=== PATIENT | female | born 1965 | race Caucasian/White ===

== ENCOUNTER 2016-12-01 17:22 | Emergency (ER) | payer SELFPAY ==
[~2016-12-01] VITALS: Ht 182.9 cm; Wt 65.1 kg
[~2016-12-01 17:22] MED LIST: CELE20TA PO; GLUCTAB PO; METH25IN13 SQ; PRED5TAB PO; SYNT125T PO
[2016-12-01 17:26] VITALS: BP 112/86; PULSE 99; RESP 16; TEMP 98.3; O2SAT 97
[2016-12-01] MEDS ORDERED: SODIUM CHLOR 0.9% 1000 ML INJ 1,000 ML IV SCH (17:43)
[2016-12-01] MEDS ORDERED: HALOPERIDOL LACTATE 5 MG/ML AMP IV PUSH ONE (17:45)
[2016-12-01] MEDS ORDERED: LORazepam 2 MG/ML VIAL IV PUSH ONE (17:45)
[2016-12-01] MEDS ORDERED: PROMETHAZINE INJ 25 MG/ML VIAL IM ONE (17:45)
[2016-12-01] MEDS ORDERED: SODIUM CHLORIDE 0.9% FLUSH 10 ML FLUSH IV FLUSH PRN (17:45)
[2016-12-01] MEDS ORDERED: ROBI0.2I3 PO (17:51)
[2016-12-01] MEDS ORDERED: PRED20 PO (17:51)
[2016-12-01] MEDS ORDERED: ZOLO25TA PO (17:51)
[2016-12-01] MEDS ORDERED: TEMA30CA PO (17:52)
[2016-12-01] MEDS ORDERED: LORA2TAB7 PO (17:52)
[2016-12-01] MEDS ORDERED: METF500T PO (17:52)
[2016-12-01 18:25] LABS: AUTOMATED NEUTROPHIL # 4.4 TH/MM3 (1.8-7.7); BASOPHIL # 0.2 TH/MM3 (0-0.2); EOSINOPHIL # 0.1 TH/MM3 (0-0.4); EOSINOPHIL % 1.8 % (0.0-4.0); HEMATOCRIT 37.1 % (35.0-46.0); HEMO FLAGS DIFF FINAL; LYMPH % 25.2 % (9.0-44.0); LYMPHOCYTE # 1.8 TH/MM3 (1.0-4.8); MEAN CELL VOLUME 81.9 FL (80.0-100.0); MEAN CORPUSCULAR HEMOGLOBIN 27.7 PG (27.0-34.0); MEAN CORPUSCULAR HGB CONC 33.8 % (32.0-36.0); MONO % 8.9 % (0.0-8.0); NEUT % 61.1 % (16.0-70.0); PLATELET COUNT 263 TH/MM3 (150-450); RED BLOOD COUNT 4.53 MIL/MM3 (4.00-5.30); RED CELL DISTRIBUTION WIDTH 14.8 % (11.6-17.2); WHITE BLOOD COUNT 7.1 TH/MM3 (4.0-11.0)
--- NOTE | 2016-12-01 18:27 | PD ---
HPI Chief Complaint: GI Complaint Time Seen by Provider: 17:31 Travel History International Travel<30 days: No Contact w/Intl Traveler<30days: No Traveled to known affect area: No History of Present Illness HPI This is a 51-year-old female with a history gastroparesis who presents to the emergency department having recently been discharged from [facility] one week ago saying that at that time she had a volvulus which was alleviated by an NG tube and then had an intussusception for which she had a therapeutic barium enema. She says she left the hospital early because she wanted to come on vacation with her mom who is sick clear. She says for 1 week she's been out of her Klonopin and her thyroid medicine because she is in a fight with her primary care physician who evidently out at her to potential job because she was positive for THC. She says she takes marijuana therapeutically and has clearance for this. She is coming in because for the past several days she's had increasing abdominal discomfort diffusely associated with severe nausea, unable to keep anything down. She says she's been constipated for 2 days and her last bowel movement was yesterday and she feels like her abdomen is more bloated. Her symptoms are severe, constant and worsening. She has had multiple abdominal surgeries including a cholecystectomy and ovarian cyst removals. PFSH Past Medical History Arthritis: Yes Autoimmune Disease: Yes (LUPUS) Anxiety: Yes Diabetes: Yes Patient Takes Glucophage: Yes Diminished Hearing: No Gastrointestinal Disorders: Yes (GASTROPARESIS) Thyroid Disease: Yes Influenza Vaccination: Yes ?: Not Ovarian Cysts: Yes Past Surgical History Abdominal Surgery: Yes (G/J-TUBE) Appendectomy: Yes Cholecystectomy: Yes Endocrine Surgery: Yes (THYROIDECTOMY) Gynecologic Surgery: Yes (uterus removed) Hysterectomy: Yes Tonsillectomy: Yes Social History Alcohol Use: Yes (SOCIALLY) Tobacco Use: Yes Substance Use: No Allergies-Medications (Allergen,Severity, Reaction): Coded Allergies: Reglan (Verified Allergy, Severe, 12/01/16) Tramadol (Verified Allergy, Severe, 12/01/16) Reported Meds & Prescriptions Reported Meds & Active Scripts Active Reported Lorazepam 2 Mg Tab 2 Mg PO Q6H PRN Temazepam 30 Mg Cap 30 Mg PO HS PRN Metformin (Metformin HCl) 500 Mg Tab 500 Mg PO BIDPC With meals Robinul Inj (Glycopyrrolate) 1 Mg/5 Ml Inj 1 Mg PO DAILY Zoloft (Sertraline HCl) 25 Mg Tab 30 Mg PO BID Prednisone 20 Mg Tab 20 Mg PO DIRECTED 40 MG twice a day x 3 days, then 20 MG daily x 3 days, then 10 MG daily x 3 days Review of Systems Except as stated in HPI: all other systems reviewed are Neg Physical Exam Narrative GENERAL:Well appearing, no acute distress SKIN: Focused skin assessment warm and dry. HEAD: Atraumatic. Normocephalic. EYES: Pupils equal and round. No injection or drainage. ENT: Dry mucous membranes. NECK: Trachea midline. CARDIOVASCULAR: Regular rate and rhythm. No murmur appreciated. RESPIRATORY: Clear to auscultation. Breath sounds equal bilaterally. GASTROINTESTINAL: Abdomen soft, diffusely tender to palpation with no rebound or guarding. Hypoactive bowel sounds. Multiple surgical scars and evidence of prior G-tube's. MUSCULOSKELETAL: No obvious deformities. NEUROLOGICAL: Awake and alert. No obvious cranial nerve deficits. Moving all extremities. PSYCHIATRIC: Appropriate mood and affect; insight and judgment normal. Data Data Last Documented VS Vital Signs Date Time Temp Pulse Resp B/P Pulse Ox O2 Delivery O2 Flow Rate FiO2 12/01/16 18:58 77 16 107/71 97 Room Air 12/01/16 17:26 98.3 Orders Complete Blood Count With Diff (12/01/16 17:43) Comprehensive Metabolic Panel (12/01/16 17:43) Lipase (12/01/16 17:43) Prothrombin Time / Inr (Pt) (12/01/16 17:43) Act Partial Throm Time (Ptt) (12/01/16 17:43) Ct Abd/Pel W Iv Contrast(Rout) (12/01/16 17:43) Iv Access Insert/Monitor (12/01/16 17:43) Ecg Monitoring (12/01/16 17:43) Oximetry (12/01/16 17:43) Sodium Chlor 0.9% 1000 Ml Inj (Ns 1000 M (12/01/16 17:43) Sodium Chloride 0.9% Flush (Ns Flush) (12/01/16 17:45) Haloperidol Inj (Haldol Inj) (12/01/16 17:45) Promethazine Inj (Phenergan Inj) (12/01/16 17:45) Lorazepam Inj (Ativan Inj) (12/01/16 17:45) Chest, Single Ap (12/01/16 ) Iohexol 350 Inj (Omnipaque 350 Inj) (12/01/16 19:39) Labs Laboratory Tests Test 12/01/16 18:20 White Blood Count 7.1 TH/MM3 Red Blood Count 4.53 MIL/MM3 Hemoglobin 12.5 GM/DL Hematocrit 37.1 % Mean Corpuscular Volume 81.9 FL Mean Corpuscular Hemoglobin 27.7 PG Mean Corpuscular Hemoglobin 33.8 % Concent Red Cell Distribution Width 14.8 % Platelet Count 263 TH/MM3 Mean Platelet Volume 7.5 FL Neutrophils (%) (Auto) 61.1 % Lymphocytes (%) (Auto) 25.2 % Monocytes (%) (Auto) 8.9 % Eosinophils (%) (Auto) 1.8 % Basophils (%) (Auto) 3.0 % Neutrophils # (Auto) 4.4 TH/MM3 Lymphocytes # (Auto) 1.8 TH/MM3 Monocytes # (Auto) 0.6 TH/MM3 Eosinophils # (Auto) 0.1 TH/MM3 Basophils # (Auto) 0.2 TH/MM3 CBC Comment DIFF FINAL Differential Comment Prothrombin Time 10.5 SEC Prothromb Time International 1.0 RATIO Ratio Activated Partial 109.7 SEC Thromboplast Time Sodium Level 143 MEQ/L Potassium Level 3.7 MEQ/L Chloride Level 107 MEQ/L Carbon Dioxide Level 30.4 MEQ/L Anion Gap 6 MEQ/L Blood Urea Nitrogen 18 MG/DL Creatinine 0.69 MG/DL Estimat Glomerular Filtration 90 ML/MIN Rate Random Glucose 92 MG/DL Calcium Level 8.7 MG/DL Total Bilirubin 0.1 MG/DL Aspartate Amino Transf 13 U/L (AST/SGOT) Alanine Aminotransferase 24 U/L (ALT/SGPT) Alkaline Phosphatase 72 U/L Total Protein 6.9 GM/DL Albumin 3.6 GM/DL Lipase 160 U/L MDM Medical Decision Making Medical Screen Exam Complete: Yes Emergency Medical Condition: Yes Interpretation(s) No leukocytosis Electrolytes are reassuring Lipase is normal APTT is 109.7 likely due to the fact that the patient was recently hospitalized and on heparin Differential Diagnosis Bowel obstruction, dehydration, electrolyte abnormality, volvulus, intussusception Narrative Course This is a 51-year-old female who presents to the emergency department with severe nausea and abdominal distention. She says she was recently hospitalized with a volvulus and an intussusception at an outside hospital. She was placed in a monitor and an IV was established. She was given symptomatic control and feels better. Her labs were obtained which were all reassuring. CT abdomen and pelvis is unremarkable. I think the patient can safely be discharged to follow-up with her outpatient specialists. Diagnosis Primary Impression: Vomiting Qualified Code: R11.2 - Non-intractable vomiting with nausea, unspecified vomiting type Patient Instructions: General Instructions Additional Instructions: If you develop severe or worsening abdominal pain, fever>100.4, persistent vomiting or inability to eat or drink return to the emergency department immediately. Follow up with your primary care physician in 1-2 days for a check-up. Med/Other Pt SpecificInfo: Prescription(s) given Disposition: 01 DISCHARGE HOME Condition: Stable Cindi Dempsey MD Dec 01, 2016 18:27
[2016-12-01 18:34] VITALS: RESP 16; O2SAT 97
[2016-12-01 18:38] LABS: CHLORIDE 107 MEQ/L (98-107); POTASSIUM 3.7 MEQ/L (3.5-5.1); SODIUM (NA) 143 MEQ/L (136-145)
[2016-12-01 18:42] LABS: ANION GAP 6 MEQ/L (5-15); BICARBONATE 30.4 MEQ/L (21.0-32.0); BLOOD UREA NITROGEN 18 MG/DL (7-18)
[2016-12-01 18:45] LABS: ALT (GPT) 24 U/L (10-53); AST (GOT) 13 U/L (15-37); GLOMERULAR FILTRATION RATE 90 ML/MIN (>89)
[2016-12-01 18:46] LABS: TOTAL BILIRUBIN ADULT 0.1 MG/DL (0.2-1.0)
[2016-12-01 18:48] LABS: ALKALINE PHOSPHATASE 72 U/L (45-117)
[2016-12-01 18:58] VITALS: BP 107/71; PULSE 77; RESP 16; O2SAT 97
[2016-12-01 19:11] LABS: PROTHROMBIN TIME - PATIENT 10.5 SEC (9.8-11.6)
[2016-12-01 19:12] LABS: APTT (PATIENT) 109.7 SEC (24.3-30.1)
[2016-12-01] MEDS ORDERED: IOHEXOL 350 MG/ML 10 ML VIAL (for RAD DIAG) IV ONE (19:39)
--- NOTE | 2016-12-01 19:44 | RADRPT ---
EXAM DATE/TIME: 12/01/2016 19:30 [facility] COMPARISON: No previous studies available for comparison. INDICATIONS : Chest discomfort, nausea, vomiting. Confirm power port for CT usage. MEDICAL HISTORY : Gastroparesis. SURGICAL HISTORY : Port placement ENCOUNTER: Initial ACUITY: 1 day PAIN SCORE: 0/10 LOCATION: Bilateral chest FINDINGS: Left-sided [id number] tip is in the superior vena cava. Mild cardiomegaly. Minimal basilar atelect asis. No dense consolidation or effusion. No pneumothorax. CONCLUSION: 1. [id number] tip in superior vena cava. Minimal basilar atelectasis. Cardiomegaly. Richie Marquez MD on December 01, 2016 at 19:40 Board Certified Radiologist. This report was verified electronically.
--- NOTE | 2016-12-01 20:02 | RADRPT ---
EXAM DATE/TIME: 12/01/2016 19:28 [facility] COMPARISON: No previous studies available for comparison. INDICATIONS : Abdominal pain. IV CONTRAST: 100 cc Omnipaque 350 (iohexol) IV ORAL CONTRAST: No oral contrast ingested. RADIATION DOSE: 7.47 CTDIvol (mGy) MEDICAL HISTORY : Gastroparesis. Lupus. SURGICAL HISTORY : Appendectomy. Cholecystectomy.Hysterectomy. ENCOUNTER: Initial ACUITY: 1 day PAIN SCALE: 6/10 LOCATION: abdomen TECHNIQUE: Volumetric scanning of the abdomen and pelvis was performed. Using automated exposure control and ad justment of the mA and/or kV according to patient size, radiation dose was kept as low as reasonably achievable to obtain optimal diagnostic quality images. DICOM format image data is available electro nically for review and comparison. FINDINGS: Lung bases are clear. Pectus deformity noted. No acute findings in the liver, spleen, adrenals, kidneys or pancreas. Previous cholecystectomy. No bowel obstruction. No free air or free fluid. No adenopathy. Bladder unremarkable. No acute bony a bnormality. Mild scoliosis. CONCLUSION: 1. No acute findings on abdomen pelvic CT. Postoperative cholecystectomy, appendectomy and hysterecto my. No bowel obstruction, free air or free fluid. Richie Marquez MD on December 01, 2016 at 19:56 Board Certified Radiologist. This report was verified electronically.
[2016-12-01] MEDS ORDERED: LEVO.125 PO (20:12)
== END 2016-12-01 20:39 | disposition home or self-care (01) ==
LOC: PHED 17:22
DX: R11.2 Nausea with vomiting, unspecified (principal); K59.00 Constipation, unspecified; R14.0 Abdominal distension (gaseous); R10.84 Generalized abdominal pain; E11.9 Type 2 diabetes mellitus without complications; E07.9 Disorder of thyroid, unspecified; Z72.0 Tobacco use; Z79.84 Long term (current) use of oral hypoglycemic drugs; Z87.39 Personal history of other diseases of the musculoskeletal system and connective tissue; Z86.2 Personal history of diseases of the blood and blood-forming organs and certain disorders involving the immune mechanism; Z86.59 Personal history of other mental and behavioral disorders; Z87.19 Personal history of other diseases of the digestive system
CPT/HCPCS: 71010; 74177; 80053; 83690; 85025; 85610; 85730; 96361; 96372; 96374; 96375; 99285; J1630; J1642; J2060; J2550; J7030; Q9967